=== PATIENT | female | born 1990 | race Caucasian/White ===

== ENCOUNTER 2019-01-17 17:06 | Emergency (ER) | payer MEDICAID ==
[~2019-01-17] VITALS: Ht 165.1 cm; Wt 70.3 kg
[2019-01-17 17:18] VITALS: Ht 165.1 cm; Wt 70.3 kg
[2019-01-17 17:46] VITALS: BP 110/541
== END 2019-01-17 19:00 | disposition home or self-care (01) ==
LOC: ED 17:06
DX: I88.9 Nonspecific lymphadenitis, unspecified (principal)
CPT/HCPCS: J1885